=== PATIENT | female | born 1975 | race Caucasian/White ===

== ENCOUNTER 2020-08-09 19:21 | Emergency (ER) | payer OTHER ==
[2020-08-09] MEDS ORDERED: QUET200T2 PO (19:44)
[2020-08-09] MEDS ORDERED: LAMO150T3 PO (19:44)
[2020-08-09] MEDS ORDERED: PAXI40TA10 PO (19:44)
--- NOTE | 2020-08-09 20:36 | REPVR ---
PROCEDURE INFORMATION: Exam: XR Chest, 1 View Exam date and time: 08/09/2020 8:26 PM Age: 44 years old Clinical indication: Other: AMS; Additional info: Altered mental status TECHNIQUE: Imaging protocol: XR of the chest Views: 1 view. COMPARISON: No relevant prior studies available. FINDINGS: Lungs: Unremarkable. No consolidation. Pleural space: Unremarkable. No pleural effusion. No pneumothorax. Heart/Mediastinum: Small hiatal hernia. Diaphragm: Mild elevation right hemidiaphragm. Bones/joints: Unremarkable. IMPRESSION: 1. Small hiatal hernia. 2. No acute findings. Electronically signed by: Jamie Caldwell On 08/09/2020 20:36:18 PM
[2020-08-09 20:42] LABS: BASO % 0.6 % (0.0-1.0); EOS # 0.1 10^3/uL (0.0-0.5); EOS % 1.4 % (0.0-3.0); HEMATOCRIT 41.5 % (36.0-47.0); HEMOGLOBIN 13.5 g/dl (12.0-15.5); LYMPH # 1.3 10^3/uL (1.5-5.0); MEAN CORPUSCULAR HEMOGLOBIN 29.5 pg (27.0-33.0); MEAN CORPUSCULAR HGB CONC 32.5 g/dl (32.0-36.5); MEAN CORPUSCULAR VOLUME 90.8 fl (80.0-96.0); MONO # 0.5 10^3/uL (0.0-0.8); MONO % 6.8 % (0.0-5.0); NEUTROPHILS % 71.8 % (36.0-66.0); PLATELET COUNT, AUTOMATED 292 10^3/uL (150-450); RED BLOOD COUNT 4.57 10^6/uL (4.00-5.40)
--- NOTE | 2020-08-09 20:51 | REPVR ---
PROCEDURE INFORMATION: Exam: CT Head Without Contrast Exam date and time: 08/09/2020 8:41 PM Age: 44 years old Clinical indication: Altered mental status/memory loss TECHNIQUE: Imaging protocol: Computed tomography of the head without contrast. Radiation optimization: All CT scans at this facility use at least one of these dose optimization techniques: automated exposure control; mA and/or kV adjustment per patient size (includes targeted exams where dose is matched to clinical indication); or iterative reconstruction. COMPARISON: No relevant prior studies available. FINDINGS: Brain: Normal. No hemorrhage. Unremarkable white matter. No mass effect. Cerebral ventricles: No ventriculomegaly. Bones/joints: Unremarkable. No acute fracture. Paranasal sinuses: Visualized sinuses are unremarkable. No fluid levels. Mastoid air cells: Visualized mastoid air cells are well aerated. Soft tissues: Unremarkable. IMPRESSION: No acute intracranial abnormality. Electronically signed by: Jamie Caldwell On 08/09/2020 20:51:22 PM
[2020-08-09 21:11] LABS: ACETAMINOPHEN LEVEL < 2.0 UG/ML (10.0-30.0); ALBUMIN 4.1 GM/DL (3.2-5.2); ALT/SGPT 111 U/L (12-78); BILIRUBIN,DIRECT < 0.1 MG/DL (0.0-0.2); BILIRUBIN,TOTAL 0.2 MG/DL (0.2-1.0); BLOOD UREA NITROGEN 10 MG/DL (7-18); CARBON DIOXIDE LEVEL 28 MEQ/L (21-32); CHLORIDE LEVEL 105 MEQ/L (98-107); CK-MB VALUE MASS 2.4 NG/ML (<3.6); CPK CREATINE PHOSPHOKINASE 237 U/L (26-192); CREATININE FOR GFR 1.06 MG/DL (0.55-1.30); ETHYL ALCOHOL (ETHANOL) < 0.003 % (0.000-0.010); GLOMERULAR FILTRATION RATE 59.4 (>58); GLUCOSE, FASTING 94 MG/DL (70-100); MB/CK RELATIVE INDEX 1.01 (< OR =4); POTASSIUM SERUM 3.8 MEQ/L (3.5-5.1); SALICYLATE LEVEL < 1.7 MG/DL (5.0-30.0); SODIUM LEVEL 141 MEQ/L (136-145); TOTAL PROTEIN 7.2 GM/DL (6.4-8.2); TROPONIN I < 0.02 NG/ML (< 0.10)
[2020-08-09] MEDS ORDERED: NS 1,000 ML IV ONE (21:15)
[2020-08-09 23:35] LABS: AMPHETAMINES LEVEL URINE NEGATIVE (NEGATIVE); BARBITURATES URINE NEGATIVE (NEGATIVE); BENZODIAZEPINES URINE NEGATIVE (NEGATIVE); CANNABINOIDS URINE NEGATIVE (NEGATIVE); COCAINE METABOLITE URINE NEGATIVE (NEGATIVE); METHADONE URINE NEGATIVE (NEGATIVE); OPIATES URINE NEGATIVE (NEGATIVE); PHENCYCLIDINE URINE NEGATIVE (NEGATIVE)
[2020-08-10] MEDS ORDERED: lamoTRIgine 100MG TAB PO ONE
[2020-08-10] MEDS ORDERED: KETOROLAC 30 MG/ML 1ML VIAL IV ONE
[2020-08-10 00:10] VITALS: BP 144/83
--- NOTE | 2020-08-10 18:56 | ECGEPIP ---
[facility] - ED Test Date: 2020-08-09 Pat Name: JOSELUIS BOGGS Department: Room: - Gender: Female Egg Packer: ALTHEA RN : 1975 Requested By: RENETTA Pittman Order Number: [id number] Reading MD: Felicia Watts Measurements Intervals [place] Rate: 107 P: 38 NM: 135 QRS: -20 QRSD: 82 T: 23 QT: 333 QTc: 446 Interpretive Statements SINUS TACHYCARDIA ABNORMAL RHYTHM ECG NSTTW abnormalities NO PRIOR Electronically Signed on 08-10-2020 18:56:12 EST by Felicia Watts
== END 2020-08-10 00:20 | disposition home or self-care (01) ==
LOC: M ED 19:21
DX: R41.82 Altered mental status, unspecified (principal); R00.0 Tachycardia, unspecified; R94.31 Abnormal electrocardiogram [ECG] [EKG]; Z04.1 Encounter for examination and observation following transport accident; F41.9 Anxiety disorder, unspecified; F32.9 Major depressive disorder, single episode, unspecified; F12.10 Cannabis abuse, uncomplicated
CPT/HCPCS: 70450; 71045; 80048; 80076; 80307; 82550; 82553; 83605; 84443; 84484; 85025; 93005; 93041; 94760; 96361; 96374; 99285; G0480; J1885